=== PATIENT | female | born 2000 | race African-American/Black ===

== ENCOUNTER 2018-12-22 07:28 | Emergency (ER) | payer OTHER ==
[2018-12-22 07:33] VITALS: BP 125/75
--- NOTE | 2018-12-22 08:13 | ER Document Report ---
HPI - HPI Time Seen by Provider: 12/22/18 08:04 Pain Level: 2 Notes: Patient is a 18-year-old female with no significant past medical history who presents to the emergency department complaining of a generalized rash primarily to the Flexeril areas of her body including the back of her knee, front of her feet/ankle, axilla, antecubital space that started a few days ago. Patient states that it does itch on occasion, but there is no associated pain. She is eating and drinking without difficulty. She is urinating normally and having normal bowel movements. No recent illness. Patient denies any new soaps, detergents, chemical exposure, insect bite, foods. She is not on any medicines daily. No other concerns or complaints. She has not used any medicines for her symptoms. Denies any headache, fever, neck pain, URI, sore throat, chest pain, palpitations, syncope, cough, shortness of breath, wheeze, dyspnea, abdominal pain, nausea/vomiting/diarrhea, urinary retention, dysuria, hematuria, joint pains, or rash. - ROS Systems Reviewed and Negative: Yes All other systems reviewed and negative - REPRODUCTIVE Reproductive: DENIES: : Past Medical History - Social History Smoking Status: Never Smoker Family History: Reviewed & Not Pertinent Patient has suicidal ideation: No Patient has homicidal ideation: No Renal/ Medical History: Denies: Hx Peritoneal Dialysis Vertical Provider Document - CONSTITUTIONAL Agree With Documented VS: Yes Notes: PHYSICAL EXAMINATION: GENERAL: Well-appearing, well-nourished and in no acute distress. HEAD: Atraumatic, normocephalic. EYES: Pupils equal round and reactive to light, extraocular movements intact, sclera anicteric, conjunctiva are normal. ENT: Nares patent and without discharge. oropharynx clear without exudates. No tonsilar hypertrophy or erythema. Moist mucous membranes. NECK: Normal range of motion, supple without lymphadenopathy LUNGS: Breath sounds clear to auscultation bilaterally and equal. No wheezes rales or rhonchi. HEART: Regular rate and rhythm without murmurs, rubs, gallops. ABDOMEN: Soft, nontender, nondistended abdomen. No guarding, no rebound. No masses appreciated. Normal bowel sounds present. No CVA tenderness bilaterally. Musculoskeletal: FROM to passive/active. Strength 5+/5. Extremities: No cyanosis, clubbing, or edema b/l. Peripheral pulses 2+. Capillary refill less than 3 seconds. NEUROLOGICAL: Cranial nerves grossly intact. Normal speech, normal gait. Normal sensory, motor exams PSYCH: Normal mood, normal affect. SKIN: skin colored, dry, small papular rash noted to the flexeril surfaces, generalized. Non-tender. no fluctuance, erythema, induration, streaks, purulence. Course - Re-evaluation Re-evalutation: 12/22/18 08:11 Patient is an afebrile, well-hydrated, 18-year-old female who presents to the emergency department with a nonspecific skin rash to flexural surface, suspect possible eczema/dermatitis. Vitals are acceptable without significant tachycardia, tachypnea, or hypoxia. PE is otherwise unremarkable. She is nontoxic-appearing and is tolerating p.o. without difficulty. Low suspicion for any SJS, Nec fasciitis, erythema nodosum, cellulitis, sepsis, or other systemic emergent condition at this time. Patient to monitor symptoms for acute changes. I will send her home with a steroid taper. Conservative measures for symptoms otherwise. Recheck with your PCM this week. Return to the ED with any other worsening/concerning symptoms as reviewed. Patient is in agreement. - Vital Signs Vital signs: Temp Pulse Resp BP Pulse Ox 98.4 F 85 14 125/75 99 12/22/18 07:32 12/22/18 07:32 12/22/18 07:32 12/22/18 07:32 12/22/18 07:32 Discharge - Discharge Clinical Impression: Rash and nonspecific skin eruption Condition: Stable Disposition: HOME, SELF-CARE Additional Instructions: Keep the skin clean and dry Wash with mild soap and water Moisturizers Tylenol/ibuprofen if needed Take medication as directed Monitor for any worsening symptoms Recheck with your PCM in 3-5 days Return to the ED with any worsening symptoms and/or development of fever, headache, chest pain, palpitations, syncope, shortness of breath, trouble breathing, abdominal pain, n/v/d, abscess, purulent discharge, red streaks, worsening swelling, or other worsening symptoms that are concerning to you. Prescriptions: Prednisone [Deltasone 10 mg Tablet] 10 mg PO DAILY #18 tablet Referrals: JULES HERRMANN DO [ACTIVE STAFF] - Follow up as needed
== END 2018-12-22 08:15 | disposition home or self-care (01) ==
LOC: ER 07:28
DX: R21 Rash and other nonspecific skin eruption (principal); Z79.899 Other long term (current) drug therapy
CPT/HCPCS: 99282

== ENCOUNTER 2019-07-13 16:47 | Emergency (ER) | payer OTHER ==
--- NOTE | 2019-07-13 17:07 | ER Document Report ---
ED Medical Screen (RME) - General Chief Complaint: Vaginal Bleeding Stated Complaint: VAGNIAL BLEEDING Time Seen by Provider: 07/13/19 17:02 Mode of Arrival: Ambulatory Information source: Patient Notes: 18-year-old female presented to ED for complaint of vaginal bleeding for the last 5 months. She states before that she had no period for 3 months and before that she bled for 3 months. She states she has been to her primary doctor multiple times and he keeps telling her that is normal for somebody their age. Patient is alert oriented respirations regular and unlabored speaking in full sentences. She is and this is the provider assigned her to. Patient does not smoke or do drugs she rarely drinks maybe once or twice in her life. She does live with her . I have greeted and performed a rapid initial assessment of this patient. A comprehensive ED assessment and evaluation of the patient, analysis of test results and completion of medical decision making process will be conducted by an additional ED providers. TRAVEL OUTSIDE OF THE [place] IN LAST 30 DAYS: No - Related Data Allergies/Adverse Reactions: No Known Allergies Allergy (Verified 07/13/19 16:50) Past Medical History Renal/ Medical History: Denies: Hx Peritoneal Dialysis Physical Exam - Vital signs Vitals: Temp Pulse Resp BP Pulse Ox 98.1 F 80 15 133/78 H 99 07/13/19 16:52 07/13/19 16:52 07/13/19 16:52 07/13/19 16:52 07/13/19 16:52 Course - Vital Signs Vital signs: Temp Pulse Resp BP Pulse Ox 98.1 F 80 15 133/78 H 99 07/13/19 16:52 07/13/19 16:52 07/13/19 16:52 07/13/19 16:52 07/13/19 16:52
[2019-07-13 17:34] LABS: ABSOLUTE BASOPHILS # (AUTO) 0.1 10^3/uL (0.0-0.2); ABSOLUTE EOSINOPHILS # (AUTO) 0.1 10^3/uL (0.0-0.6); ABSOLUTE LYMPHOCYTES (AUTO) 3.9 10^3/uL (0.5-4.7); ABSOLUTE MONOCYTES (AUTO) 0.6 10^3/uL (0.1-1.4); ABSOLUTE NEUT (AUTO) 3.5 10^3/uL (1.7-8.2); BASOPHILS % (AUTO) 0.7 % (0-2); EOSINOPHILS % (AUTO) 1.4 % (0-6); HEMATOCRIT 38.1 % (36.0-47.0); HEMOGLOBIN 12.8 g/dL (12.0-15.5); LYMPHOCYTES % (AUTO) 47.2 % (13-45); MEAN CORPUSCULAR HGB CONC 33.6 g/dL (32.0-36.0); MEAN CORPUSCULAR VOLUME 86 fl (80-97); MONOCYTES % (AUTO) 7.6 % (3-13); PLATELET COUNT 358 10^3/uL (150-450); RED BLOOD COUNT 4.43 10^6/uL (3.72-5.28); RED CELL DISTRIBUTION WIDTH 12.9 % (11.5-14.0); SEGMENTED NEUTROPHILS % (AUTO) 43.1 % (42-78); TOTAL CELLS COUNTED % (AUTO) 100 %; WHITE BLOOD COUNT 8.2 10^3/uL (4.0-10.5)
[2019-07-13 17:41] LABS: AMORPHOUS SEDIMENT,URINE TRACE /HPF; APPEARANCE,URINE CLOUDY; BILIRUBIN,URINE NEGATIVE (NEGATIVE); COLOR,URINE YELLOW; GLUCOSE, URINE NEGATIVE (NEGATIVE); KETONES,URINE NEGATIVE (NEGATIVE); LEUKOCYTE ESTERASE,URINE NEGATIVE (NEGATIVE); NITRITE,URINE NEGATIVE (NEGATIVE); PROTEIN,URINE NEGATIVE (NEGATIVE); URINE SPECIFIC GRAVITY 1.012; UROBILINOGEN,URINE NEGATIVE mg/dL (<2.0)
[2019-07-13 17:57] LABS: ALBUMIN 4.5 g/dL (3.5-5.0); ALKALINE PHOSPHATASE 81 U/L (38-126); ANION GAP 11 (5-19); ASPARTATE AMINO TRANSFERASE 28 U/L (14-36); BILIRUBIN,DIRECT 0.2 mg/dL (0.0-0.4); BILIRUBIN,TOTAL 0.6 mg/dL (0.2-1.3); BLOOD UREA NITROGEN 11 mg/dL (7-20); CALCIUM 10.2 mg/dL (8.4-10.2); CARBON DIOXIDE 28 mmol/L (22-30); CHLORIDE 101 mmol/L (98-107); GLUCOSE 96 mg/dL (75-110); POTASSIUM 3.7 mmol/L (3.6-5.0); TOTAL PROTEIN 7.8 g/dL (6.3-8.2)
--- NOTE | 2019-07-13 20:19 | ER Document Report ---
ED GI/ - General Chief Complaint: Vaginal Bleeding Stated Complaint: VAGNIAL BLEEDING Time Seen by Provider: 07/13/19 20:19 Primary Care Provider: COMFORT WHITT MD [Primary Care Provider] - Follow up as needed Mode of Arrival: Ambulatory Information source: Patient Notes: HISTORY OF PRESENT ILLNESS: Patient is a 18-year-old female with a past medical history of irregular menses who presents with vaginal bleeding for the past 4 to 5 months. Patient reports no pain associated with symptoms, has been seen by her primary physician who believes this "is normal," and the patient has not been seen by gynecology. Location: Pelvic Onset: Gradual Provocation: None Quality: Bleeding Radiation: None Severity: Mild to moderate Timing: Constant LMP: Currently bleeding Associated symptoms: Denies nausea vomiting, no pain, no vaginal discharge, no lightheadedness or dizziness REVIEW OF SYSTEMS: CONSTITUTIONAL : Denies fever or chills, no sweats. Denies recent illness. EENT: Denies eye, ear, throat, or mouth pain or symptoms. Denies nasal or sinus congestion. CARDIOVASCULAR: Denies chest pain. RESPIRATORY: Denies cough, cold, or chest congestion. Denies shortness of breath, difficulty breathing, or wheezing. GASTROINTESTINAL: Denies abdominal pain. Denies nausea, vomiting, or diarrhea. Denies constipation. GENITOURINARY: Denies difficulty urinating, painful urination, burning, frequency, or blood in urine. Denies vaginal bleeding, abnormal or irregular periods. MUSCULOSKELETAL: Denies neck or back pain or joint pain or swelling. SKIN: Denies rash or skin lesions. HEMATOLOGIC : Denies easy bruising or bleeding. LYMPHATIC: Denies swollen, enlarged glands. NEUROLOGICAL: Denies altered mental status or loss of consciousness. Denies headache. Denies weakness or paralysis or loss of use of either side. Denies problems with gait or speech. Denies sensory or motor loss. PSYCHIATRIC: Denies anxiety or stress or depression. All other systems reviewed and negative. PHYSICAL EXAMINATION: GENERAL: Well-appearing, well-nourished and in no acute distress. HEAD: Atraumatic, normocephalic. No scalp deformity, depression, or crepitance. EYES: Pupils are 3 mm and equal/round/reactive to light, extraocular movements intact, sclera anicteric, conjunctiva are normal. ENT: Nares patent bilaterally, oropharynx clear without exudates or palatal petechia. Moist mucous membranes. No tonsil hypertrophy. NECK: Normal range of motion, supple without lymphadenopathy. LUNGS: Breath sounds present, equal, and clear to auscultation bilaterally. No wheezes, rales, or rhonchi. HEART: Regular rate and rhythm without murmurs, rubs, or gallops. 2+ peripheral pulses. Normal capillary refill. ABDOMEN: Soft, nontender, nondistended. Normoactive bowel sounds. No guarding, no rebound. No masses appreciated. BACK: Normal contour, no midline tenderness. Rectal exam deferred. PELVC: Deferred in lieu of pelvic ultrasound. EXTREMITIES: Normal range of motion, no pitting or edema. No cyanosis. NEUROLOGICAL: No focal neurological deficits. Moves all extremities spontaneously and on command. PSYCH: Normal mood, normal affect. No suicidal thoughts/ideations. No homicidal thoughts/ideations. No hallucinations. SKIN: Warm, dry, normal turgor, no rashes or lesions noted. ASSESSMENT AND PLAN: This patient is a 18-year-old female who presents with vaginal bleeding. Concern for polycystic ovary syndrome versus menorrhagia versus uterine fibroids. 1. Will obtain labs, urine, and pelvic ultrasound. 2. Will give oral Provera and reassess. TRAVEL OUTSIDE OF THE [place] IN LAST 30 DAYS: No - HPI Patient complains to provider of: Vaginal bleeding Onset: Other - "About 5 months ago" Quality of pain: No pain Severity at maximum: Severe Severity in ED: Mild Pain Level: Denies Location: Vaginal Vaginal bleeding (Compared to normal period): Heavier Menstrual period history: Irregular OB ultrasound done: No vitamins taken: No Sexual history: Active Associated symptoms: None Exacerbated by: Denies Relieved by: Denies Similar symptoms previously: Yes Recently seen / treated by doctor: Yes - Related Data Allergies/Adverse Reactions: No Known Allergies Allergy (Verified 07/13/19 16:50) Past Medical History - General Information source: Patient - Social History Smoking Status: Never Smoker Chew tobacco use (# tins/day): No Frequency of alcohol use: None Drug Abuse: None Lives with: Family Family History: Reviewed & Not Pertinent Patient has suicidal ideation: No Patient has homicidal ideation: No - Past Medical History Cardiac Medical History: Reports: None Pulmonary Medical History: Reports: None EENT Medical History: Reports: None Neurological Medical History: Reports: None Endocrine Medical History: Reports: None Renal/ Medical History: Reports: Other - History of irregular menses. Denies: Hx Peritoneal Dialysis Malignancy Medical History: Reports: None GI Medical History: Reports: None Musculoskeletal Medical History: Reports None Skin Medical History: Reports None Psychiatric Medical History: Reports: None Traumatic Medical History: Reports: None Infectious Medical History: Reports: None Surgical Hx: Negative Past Surgical History: Reports: None - Immunizations Immunizations up to date: Yes Hx Diphtheria, Pertussis, Tetanus Vaccination: Yes Review of Systems - Review of Systems Constitutional: No symptoms reported EENT: No symptoms reported Cardiovascular: No symptoms reported Respiratory: No symptoms reported Gastrointestinal: No symptoms reported Genitourinary: No symptoms reported Female Genitourinary: See HPI, Heavy/abnormal periods, Vaginal bleeding Musculoskeletal: No symptoms reported Skin: No symptoms reported Hematologic/Lymphatic: No symptoms reported Neurological/Psychological: No symptoms reported -: Yes All other systems reviewed and negative Physical Exam - Vital signs Vitals: Temp Pulse Resp BP Pulse Ox 98.1 F 80 15 133/78 H 99 07/13/19 16:52 07/13/19 16:52 07/13/19 16:52 07/13/19 16:52 07/13/19 16:52 Interpretation: Normal - General General appearance: Appears well, Alert - HEENT Head: Normocephalic, Atraumatic Eyes: Normal Pupils: PERRL - Respiratory Respiratory status: No respiratory distress Chest status: Nontender Breath sounds: Normal Chest palpation: Normal - Cardiovascular Rhythm: Regular Heart sounds: Normal auscultation Murmur: No - Abdominal Inspection: Normal Distension: No distension Bowel sounds: Normal Tenderness: Nontender Organomegaly: No organomegaly - Back Back: Normal, Nontender - Extremities General upper extremity: Normal inspection, Nontender, Normal color, Normal ROM, Normal temperature General lower extremity: Normal inspection, Nontender, Normal color, Normal ROM, Normal temperature, Normal weight bearing. No: Seven's sign - Neurological Neuro grossly intact: Yes Cognition: Normal Orientation: AAOx4 [place] Coma Scale Eye Opening: Spontaneous [place] Coma Scale Verbal: Oriented [place] Coma Scale Motor: Obeys Commands [place] Coma Scale Total: 15 Speech: Normal Motor strength normal: LUE, RUE, LLE, RLE Sensory: Normal - Psychological Associated symptoms: Normal affect, Normal mood - Skin Skin Temperature: Warm Skin Moisture: Dry Skin Color: Normal Course - Re-evaluation Re-evalutation: 07/13/19 23:29 Blood work, including blood counts, is normal. Ultrasound shows no evidence of ovarian or intrauterine pathology. Will discharge the patient home with strict return precautions and follow-up with [facility]. All results were explained to and discussed with the patient, and all questions addressed and answered for the patient. The patient voices both understanding and agreeing with the plan. - Vital Signs Vital signs: Temp Pulse Resp BP Pulse Ox 98.1 F 80 15 133/78 H 99 07/13/19 16:52 07/13/19 16:52 07/13/19 16:52 07/13/19 16:52 07/13/19 16:52 - Laboratory Result Diagrams: 07/13/19 17:18 07/13/19 17:18 Laboratory results interpreted by me: 07/13/19 07/13/19 17:18 17:18 Lymph % (Auto) 47.2 H Urine Blood LARGE H - Diagnostic Test Radiology reviewed: Image reviewed, Reports reviewed Discharge - Discharge Clinical Impression: Menorrhagia with irregular cycle Condition: Good Disposition: HOME, SELF-CARE Instructions: Menorrhagia ([facility]) Additional Instructions: You have been evaluated in the Emergency Department for vaginal bleeding. While here, you had blood work and an ultrasound and it is now safe to be discharged home. Please follow-up with your primary physician as well as [facility] as instructed in 1 week to be rechecked. Return to the Emergency Department if you experience worsening bleeding, high fevers, cramping pain, or any other concerning symptoms. Prescriptions: Medroxyprogesterone Acet [Provera 10 Mg Tablet] 10 mg PO DAILY #30 tablet Referrals: COMFORT WHITT MD [Primary Care Provider] - Follow up as needed ALLAN MEEKS MD [ACTIVE STAFF] - Follow up as needed Print Language: Swedish
[2019-07-13] MEDS ORDERED: MEDROXYPROGESTERONE ACET 10 MG TABLET PO ONE (21:02)
--- NOTE | 2019-07-13 22:27 | RADIOLOGY REPORT (SQ) ---
EXAM DESCRIPTION: US PELVIS TRANSVAGINAL COMPLETED DATE/TME: 07/13/2019 21:02 CLINICAL HISTORY: 18 years, Female, Vaginal bleeding COMPARISON: None. TECHNIQUE: Transverse and longitudinal transvaginal sonographic images of the pelvis LIMITATIONS: None. FINDINGS: The uterus measures 6.6 x 3.5 x 3.3 cm. The myometrium is homogenous. The endometrium measures 5.9 mm. The right ovary measures 3.0 x 2.2 x 2.1 cm, the left 2.4 x 1.9 x 1.9 cm. Arterial flow to each ovary. No adnexal cyst or mass. No free fluid IMPRESSION: Unremarkable pelvic ultrasound copyright 2010 [employer]- All Rights Reserved
[2019-07-13 23:46] VITALS: BP 126/81
== END 2019-07-13 23:46 | disposition home or self-care (01) ==
LOC: ER 16:47
DX: N92.1 Excessive and frequent menstruation with irregular cycle (principal)
CPT/HCPCS: 86900; 86901; 36415; 86850; 84702; 85025; 80053; 81001; 76830; J3490; 99284

== ENCOUNTER 2020-02-22 18:33 | Emergency (ER) | payer OTHER ==
--- NOTE | 2020-02-22 18:39 | ER Document Report ---
ED Medical Screen (RME) - General Chief Complaint: Vaginal Bleeding Stated Complaint: VAGINAL BLEEDING Time Seen by Provider: 02/22/20 18:34 Primary Care Provider: COMFORT WHITT MD [Primary Care Provider] - Follow up as needed Mode of Arrival: Ambulatory Information source: Patient Notes: Patient is a 19-year-old female presenting to the emergency department chief complaint of vaginal bleeding. Patient's last normal period was on 01/23/2020. Patient reports on 02/17/2020 she took a test at home which was positive. She states that same day she went and got a blood quantitative test done and it was a 25. She states she then began having spotting and vaginal bleeding over the weekend. She states she took another home test today and it was negative. Patient is very tearful thinking that she is having a miscarriage. We will send off labs for confirmation of at this time. I have greeted and performed a rapid initial assessment of this patient. A comprehensive ED assessment and evaluation of the patient, analysis of test results and completion of the medical decision making process will be conducted by additional ED providers. I have specifically instructed the patient or family members with the patient to immediately return to any nursing staff should anything change in the patient's condition or with their chief complaint. TRAVEL OUTSIDE OF THE [place] IN LAST 30 DAYS: No - Related Data Allergies/Adverse Reactions: No Known Allergies Allergy (Verified 07/13/19 16:50) Past Medical History Renal/ Medical History: Denies: Hx Peritoneal Dialysis - Immunizations Immunizations up to date: Yes Hx Diphtheria, Pertussis, Tetanus Vaccination: Yes Doctor's Discharge - Discharge Referrals: COMFORT WHITT MD [Primary Care Provider] - Follow up as needed
[2020-02-22 18:59] LABS: ABSOLUTE BASOPHILS # (AUTO) 0.1 10^3/uL (0.0-0.2); ABSOLUTE EOSINOPHILS # (AUTO) 0.1 10^3/uL (0.0-0.6); ABSOLUTE LYMPHOCYTES (AUTO) 3.5 10^3/uL (0.5-4.7); ABSOLUTE MONOCYTES (AUTO) 0.6 10^3/uL (0.1-1.4); ABSOLUTE NEUT (AUTO) 3.7 10^3/uL (1.7-8.2); BASOPHILS % (AUTO) 0.7 % (0-2); EOSINOPHILS % (AUTO) 1.3 % (0-6); HEMATOCRIT 40.3 % (36.0-47.0); HEMOGLOBIN 13.5 g/dL (12.0-15.5); LYMPHOCYTES % (AUTO) 44.2 % (13-45); MEAN CORPUSCULAR HEMOGLOBIN 29.2 pg (27.0-33.4); MEAN CORPUSCULAR HGB CONC 33.5 g/dL (32.0-36.0); MEAN CORPUSCULAR VOLUME 87 fl (80-97); MONOCYTES % (AUTO) 7.4 % (3-13); PLATELET COUNT 347 10^3/uL (150-450); RED BLOOD COUNT 4.62 10^6/uL (3.72-5.28); RED CELL DISTRIBUTION WIDTH 13.4 % (11.5-14.0); SEGMENTED NEUTROPHILS % (AUTO) 46.4 % (42-78); TOTAL CELLS COUNTED % (AUTO) 100 %
[2020-02-22 19:09] LABS: APPEARANCE,URINE SLIGHTLY-CLOUDY; BILIRUBIN,URINE NEGATIVE (NEGATIVE); COLOR,URINE YELLOW; GLUCOSE, URINE NEGATIVE (NEGATIVE); KETONES,URINE NEGATIVE (NEGATIVE); LEUKOCYTE ESTERASE,URINE NEGATIVE (NEGATIVE); NITRITE,URINE NEGATIVE (NEGATIVE); PROTEIN,URINE NEGATIVE (NEGATIVE); URINE SPECIFIC GRAVITY 1.009; UROBILINOGEN,URINE NEGATIVE mg/dL (<2.0)
[2020-02-22 20:47] LABS: ALBUMIN 4.8 g/dL (3.5-5.0); ALKALINE PHOSPHATASE 85 U/L (38-126); ANION GAP 10 (5-19); ASPARTATE AMINO TRANSFERASE 25 U/L (14-36); BILIRUBIN,TOTAL 0.6 mg/dL (0.2-1.3); BLOOD UREA NITROGEN 9 mg/dL (7-20); CALCIUM 9.9 mg/dL (8.4-10.2); CARBON DIOXIDE 24 mmol/L (22-30); CHLORIDE 105 mmol/L (98-107); GLUCOSE 99 mg/dL (75-110); POTASSIUM 4.5 mmol/L (3.6-5.0); TOTAL PROTEIN 8.1 g/dL (6.3-8.2)
--- NOTE | 2020-02-22 21:38 | ER Document Report ---
ED General - General Chief Complaint: Vaginal Bleeding Stated Complaint: VAGINAL BLEEDING Time Seen by Provider: 02/22/20 18:34 Primary Care Provider: COMFORT WHITT MD [Primary Care Provider] - Follow up as needed Mode of Arrival: Ambulatory TRAVEL OUTSIDE OF THE [place] IN LAST 30 DAYS: No - HPI Notes: 19 female no significant medical history presents with low volume vaginal bleeding x2 days. Patient states her last menstrual period was January 23, 2020. She took a home test both sent which was positive and went to outpatient clinic to confirm it same day and had hCG of 25. Yesterday started having light spotting and today for few hours slightly increased but less than normal menstrual blood flow. Patient denies any pelvic pain, dizziness, syncope, bleeding diatheses, anticoagulation, vaginal discharge, urinary symptoms, trauma, prior pregnancies, other [facility] [facility] OPER[facility] history. - Related Data Allergies/Adverse Reactions: No Known Allergies Allergy (Verified 07/13/19 16:50) Past Medical History - General Information source: Patient Last Menstrual Period: 01/22 - Social History Smoking Status: Never Smoker Chew tobacco use (# tins/day): No Frequency of alcohol use: None Drug Abuse: None Family History: Reviewed & Not Pertinent Patient has suicidal ideation: No Patient has homicidal ideation: No Renal/ Medical History: Denies: Hx Peritoneal Dialysis - Immunizations Immunizations up to date: Yes Hx Diphtheria, Pertussis, Tetanus Vaccination: Yes Review of Systems - Review of Systems Notes: REVIEW OF SYSTEMS: CONSTITUTIONAL : Denies fever, chills, or sweats. EENT: Denies recent cold/sinus symptoms, denies throat pain CARDIOVASCULAR: Denies chest pain, ALEX RESPIRATORY: Denies cough, denies shortness of breath. GASTROINTESTINAL: Denies abdominal pain, nausea/vomiting. GENITOURINARY: Denies difficulty urinating, painful urination. FEMALE GENITOURINARY: +vaginal bleeding, -vaginal discharge. MUSCULOSKELETAL: Denies neck pain, back pain. SKIN: Denies rash or skin lesions. HEMATOLOGIC : Denies easy bruising or bleeding. LYMPHATIC: Denies swollen, enlarged glands. NEUROLOGICAL: Denies headache, denies change in gait. PSYCHIATRIC: Denies anxiety or stress or depression. Physical Exam - Vital signs Vitals: Temp Pulse Resp BP Pulse Ox 98.6 F 100 16 133/83 H 100 02/22/20 18:41 02/22/20 18:41 02/22/20 18:41 02/22/20 18:41 02/22/20 18:41 - Notes Notes: PHYSICAL EXAMINATION: GENERAL: Well-appearing, well-nourished and in no acute distress. HEAD: Atraumatic, normocephalic. EYES: Pupils equal round and appropriate constriction, sclera anicteric, conjunctiva are normal. ENT: nares patent, moist mucous membranes. NECK: Normal range of motion, supple without lymphadenopathy LUNGS: Normal respiratory rate and effort, speaking in full sentences HEART: Regular rate, no JVD, no lower extremity edema ABDOMEN: Soft, nontender, no guarding, no masses, no CVAT PELVIC: Normal external genitalia, scant dark blood in vault, os closed, no active bleeding from onset, no CMT, no adnexal tenderness or masses, no discharge EXTREMITIES: Normal range of motion, no pitting or edema. No cyanosis. NEUROLOGICAL: Awake, alert, conversing appropriately, moves all extremities spontaneously. PSYCH: Normal mood, normal affect. SKIN: Warm, Dry, normal turgor, no rashes or lesions noted. Course - Re-evaluation Re-evalutation: 02/22/20 21:42 Presentation consistent with very early spontaneous miscarriage. No indication for ultrasound given low volume bleeding and HCG now negative Very low volume bleeding and no pain, not concerning for miscarriage requiring D&C. No signs of infection, no signs of precipitating cause, desired but patient handling news of miscarriage well. Patient has been trying to get with for 3 years, recommended that patient follow-up with [facility] automotive professional for infertility work-up. Will check type and screen to rule out RhoGam necessity. Patient given extensive follow-up instructions and return precautions which she demonstrated understanding of. 02/23/20 09:09 - Vital Signs Vital signs: Temp Pulse Resp BP Pulse Ox 98.8 F 92 16 135/86 H 100 02/22/20 22:14 02/22/20 22:14 02/22/20 22:05 02/22/20 22:14 02/22/20 22:14 - Laboratory Result Diagrams: 02/22/20 18:45 02/22/20 18:45 Laboratory results interpreted by me: 02/22/20 18:45 Urine Blood LARGE H Discharge - Discharge Clinical Impression: Spontaneous Condition: Good Disposition: HOME, SELF-CARE Additional Instructions: Miscarriage You have had a miscarriage (medically called a "spontaneous "). The miscarriage occurred because the fetus did not develop normally. There is nothing you did to cause it, and nothing you could have done to prevent it. About one in four ends in miscarriage. You should rest in bed for two or three days. As there is some risk of infection of the uterus, you should not have intercourse for one week (or until okayed by your physician). You might not have a period for six to eight weeks. You should not become again for at least three months -- the uterus requires time to get back to normal. Call the doctor or return for re-examination if there is heavy or persistent vaginal bleeding, fever, foul discharge, continued cramping pains, or abdominal pain. Follow-up with automotive professional and automotive professional specializing in [employer] within 1 week. Return to ED immediately if you have bleeding soaking more than 1 pad per hour, dizziness, fainting, fever, pelvic pain, or any other worsening or alarming symptoms. Referrals: COMFORT WHITT MD [Primary Care Provider] - Follow up as needed
[2020-02-22 22:17] VITALS: BP 135/86
== END 2020-02-22 22:58 | disposition home or self-care (01) ==
LOC: ER 18:33
DX: O03.9 Complete or unspecified spontaneous abortion without complication (principal)
CPT/HCPCS: 36415; 80053; 81001; 84702; 85025; 86900; 86901; 99284

== ENCOUNTER 2020-09-18 15:57 | Emergency (ER) | payer OTHER ==
[2020-09-18 16:13] VITALS: BP 174/99
== END 2020-09-18 19:43 | disposition left against medical advice (07) ==
LOC: ER 15:57
DX: Z53.21 Procedure and treatment not carried out due to patient leaving prior to being seen by health care provider (principal)